=== PATIENT | male | born 2000 | race Caucasian/White ===

== ENCOUNTER 2023-01-01 09:48 | Emergency (ER) | payer BC ==
[~2023-01-01] VITALS: Ht 177.8 cm; Wt 70.5 kg
[2023-01-01 10:02] VITALS: TEMP 97.9
[2023-01-01 10:27] LABS: HEMATOCRIT 48.9 % (42.0-52.0); HEMOGLOBIN 17.2 g/dl (13.5-18.0); MEAN CELL VOLUME 86 fl (80.0-100.0); MEAN CORPUSCULAR HEMOGLOBIN 30 pg (27-31); MEAN CORPUSCULAR HGB CONC 35 g/dl (33.0-37.0); MEAN PLATELET VOLUME 8.6 fl (7.4-10.4); PLATELET COUNT 252 K/mm3 (130-400); RED BLOOD COUNT 5.69 M/mm3 (4.20-5.60); REDCELL DISTRIBUTION WIDTH-CV 12.5 % (11.5-14.5)
[2023-01-01 10:38] LABS: COLLECTION METHOD CLEAN CATCH
[2023-01-01 10:47] LABS: ALBUMIN 4.5 gm/dL (3.5-5.0); CREATININE, serum 0.92 mg/dL (0.72-1.25); POTASSIUM 4.3 mmol/L (3.5-4.5); TOTAL PROTEIN 7.9 gm/dL (6.2-8.1)
[2023-01-01 10:54] LABS: BAND 14 % (0-10); EOSINOPHIL 1 % (0-4); LYMPHOCYTE 3 % (20.0-51.0); NEUTROPHILS 78 % (42.0-75.2); PLATELET ESTIMATE NORMAL (NORMAL)
[2023-01-01 10:54] LABS: MUCOUS Present (NOT PRESENT); URINE BACTERIA None Seen /hpf (NONE SEEN)
[2023-01-01 10:56] LABS: BILIRUBIN,TOTAL 0.8 mg/dL (0.2-1.2)
[2023-01-01 11:00] LABS: URINE COLOR Yellow (YELLOW)
[2023-01-01 11:01] LABS: URINE APPEARANCE Hazy (CLEAR/HAZY); URINE BLOOD TRACE-INTACT (NEGATIVE); URINE GLUCOSE Negative (NEGATIVE); URINE KETONE 1+ (NEGATIVE); URINE NITRATE Negative (NEGATIVE); URINE PROTEIN(semi-quant) 2+ (NEGATIVE)
[2023-01-01] MEDS ORDERED: ZOFRAN ODT4 MG PO (12:09)
[2023-01-01] MEDS ORDERED: PRILOSEC 20MG20 MG PO (12:17)
[2023-01-01 12:30] VITALS: BP 133/74; PULSE 94
== END 2023-01-01 12:30 | disposition home or self-care (01) ==
LOC: COL.ER 09:48
PROVIDERS: Emergency Medicine
DX: K52.9 Noninfective gastroenteritis and colitis, unspecified (principal); F17.290 Nicotine dependence, other tobacco product, uncomplicated; Z28.311 Partially vaccinated for COVID-19
CPT/HCPCS: J2405; J7030; Q9967